=== PATIENT | male | born 2000 | race Caucasian/White ===

== ENCOUNTER 2022-09-19 11:20 | Emergency (ER) | payer BC, SELFPAY ==
[2022-09-19 11:25] VITALS: BP 129/65; PULSE 65; RESP 16; TEMP 36.6; O2SAT 99
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
[2022-09-19] MEDS: Ibuprofen 600 MG TAB PO (12:52)
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
[2022-09-19 14:23] VITALS: BP 134/58; PULSE 66; TEMP 36.6; O2SAT 99
== END 2022-09-19 14:26 | disposition home or self-care (01) ==
PROVIDERS: Emergency Provider Emergency Medicine
DX: S43.102A Unspecified dislocation of left acromioclavicular joint, initial encounter (principal); V28.49XA Other motorcycle driver injured in noncollision transport accident in traffic accident, initial encounter
CPT/HCPCS: 99283; 73030

== ENCOUNTER 2023-08-26 12:49 | Outpatient (REF) | payer BC, SELFPAY ==
[2023-08-28 13:58] LABS: Chlamydia Result Negative (Negative); GC Result Negative (Negative)
== END 2023-08-26 12:50 | disposition home or self-care (01) ==
LOC: LBN 12:49
PROVIDERS: PCP Nurse Practitioner Family; Visit Provider Physician Assistant Medical
DX: Z11.3 Encounter for screening for infections with a predominantly sexual mode of transmission (principal)
CPT/HCPCS: 87491; 87591